=== PATIENT | female | born 1970 | race Caucasian/White ===

== ENCOUNTER 2018-07-03 16:35 | Inpatient (IN) | payer OTHER ==
[~2018-07-03] VITALS: Ht 172.7 cm; Wt 79.4 kg
[2018-07-03 16:39] VITALS: BP 148/83
[2018-07-03 17:27] LABS: ABSOLUTE NEUTROPHILS 5.1 thou/uL (1.4-8.2); EOSINOPHILS 4.1 % (0.0-3.0); HEMATOCRIT 41.7 % (37.0-47.0); HEMOGLOBIN 14.1 gm/dL (12.0-15.0); LYMPHOCYTES 29.8 % (24.0-44.0); MCH 29.4 pg (26.0-34.0); MCHC 33.9 g/dL (28.0-37.0); MCV 86.7 fL (80.0-100.0); MONOCYTES 7.7 % (1.0-8.0); PLATELET COUNT 259 thou/uL (150-400); POLYS 57.4 % (36.0-66.0); RBC 4.81 mil/uL (4.20-5.00); RDW 13.7 % (10.5-14.5); WBC 8.9 thou/uL (4.0-11.0)
[2018-07-03 17:29] LABS: URINE BILIRUBIN NEGATIVE (Negative); URINE BLOOD 3+ (Negative); URINE CLARITY CLEAR; URINE COLOR YELLOW; URINE GLUCOSE-RANDOM* NEGATIVE (Negative); URINE KETONES NEGATIVE (Negative); URINE LEUKOCYTES NEGATIVE (Negative); URINE NITRITE NEGATIVE (Negative); URINE PROTEIN (DIPSTICK) NEGATIVE (Negative); URINE SPECIFIC GRAVITY >= 1.030 (1.005-1.035); URINE UROBILINOGEN 0.2 E.U./dl (0.2-1.0)
[2018-07-03 17:42] LABS: CALCIUM 9.4 mg/dL (8.5-10.1); CREATININE 0.9 mg/dL (0.6-1.0); POTASSIUM 3.4 mmol/L (3.5-5.1)
[2018-07-03 17:43] LABS: CASTS None Seen /LPF (None Seen); CRYSTALS None Seen /LPF (None Seen); SQUAMOUS 0-3 Few /LPF (0-3)
[2018-07-03 17:44] LABS: BACTERIA 1-9 Few /HPF (None Seen); URINE RBC 0-2 Rare /HPF (0-2); URINE WBC 0-5 Rare /HPF (0-5)
[2018-07-03 17:48] LABS: ALBUMIN 4.3 g/dL (3.4-5.0); TOTAL BILIRUBIN 0.3 mg/dL (<0.1-1.0); TOTAL PROTEIN 8.2 g/dL (6.4-8.2)
[2018-07-03] MEDS ORDERED: SYMBICORT160 MCG/4. INH (18:25)
[2018-07-03] MEDS ORDERED: BENTYL 10 MG CA10 M1 PO (18:25)
[2018-07-03] MEDS ORDERED: PROTONIX40 M1 PO (18:25)
[2018-07-03] MEDS ORDERED: MIRALAX17 GM PO (18:26)
[2018-07-03 22:45] VITALS: BP 125/75
[2018-07-03 22:47] VITALS: BP 125/75
[2018-07-03 23:30] VITALS: BP 140/86
--- NOTE | 2018-07-04 03:16 | NUR ---
Pt came up to unit approx 2300. Alert and oriented x4. Admission assessment, history, and education completed. C/o abdominal pain. Prn pain meds administered. New admission orders note. No c/o nausea or vomiting. Pt calls appropriately. Will continue to monitor and assist with needs.
[2018-07-04 04:55] VITALS: BP 102/66
[2018-07-04 05:53] LABS: POTASSIUM 4.5 mmol/L (3.5-5.1)
[2018-07-04 07:37] VITALS: BP 115/81
[2018-07-04 08:01] LABS: CALCIUM 8.8 mg/dL (8.5-10.1); CREATININE 0.9 mg/dL (0.6-1.0)
--- NOTE | 2018-07-04 13:12 | NUR ---
PATIENT BACK FROM MRI OF ABDOMEN.GIVEN PRN TYLENOL FOR HEADACHE. IV ZOFRAN FOR N&V. ALSO GIVEN SPRITE.
[2018-07-04 16:14] VITALS: BP 132/77
--- NOTE | 2018-07-04 17:03 | NUR ---
ASSESSMENT-PT LIVES IN AN APT WITH HER SIGNIFICANT OTHER WHO IS A RN. 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 PT FOLLOWS WITH A DR AT THE [facility]. NO HH, NO DME. PT HAS BEEN TO PAIN CLINIC AT [facility]. NO DC NEEDS ANTICIPATED.
--- NOTE | 2018-07-04 17:21 | NUR ---
CONSULT CALLED TO DR [facility]/ ONCOLOGY [phone] [address] SER[address] ESTELLA ANDERSON IS POT PUSHER.
--- NOTE | 2018-07-04 17:24 | NUR ---
REPORT CALLED TO [facility] NURSE PATIENT IS MOVING TO ROOM 223.
--- NOTE | 2018-07-04 17:49 | NUR ---
PATIENT TAKEN VIA W/C TO [facility] ROOM 223. PT TRANSFERRED TO THIS ROOM.
[2018-07-04 18:05] VITALS: BP 136/86
--- NOTE | 2018-07-04 19:26 | NUR ---
PATIENT TRANSFERRED FROM [facility], REPORT FROM LEAH/RN. PATIENT ALERT AND ORIENTED X 4. UP AD FLORI. C/O PAIN WITH ABDOMEN, PAIN MED GIVEN PRIOR TO COMING TO THE UNIT. DR COLON CALLED DUE TO PATIENT WANTS HIM TO TELL HER ABOUT THE MRI RESULTS, HE STATED HE WILL SEE PATIENT IN AM AFTER BLOOD WORK RESULT RECEIVED. PATIENT HAS LEFT AC WITH NS AT 125CC/HR. WILL CONTINUE TO MONITOR.
--- NOTE | 2018-07-05 03:16 | NUR ---
PATIENT ALERT AND ORIENTED X4. UP ADLIB. IVF INFUSING W/O COMPLICATION. MEDICATED WITH MORPHINE X1 IV WITH GOOD RESULTS FOR PAIN. COOPERATIVE WITH CARE. AT BEDSIDE IN EARLY EVENING. PATIENT ANXIOUS TO SPEAK WITH THE DOCTOR IN THE AM RE:TEST RESULTS FROM MRI. WILL MONITOR.
--- NOTE | 2018-07-05 16:45 | NUR ---
ASSUMED PATIENT AND CARES AT 0715, PATIENT WOKE IN BED A&OX4, REPORTED PAIN 6/10 AND REQUESTED PAIN MED, LAC INTACT AND PATENT WITH NS @100ML/HR, UP AD FLORI, INDEPENDENT WITH CARES, VOICED CONCERNS ABOUT MASS FOUND ON PANCREAS, MD SET TO SPEAK TO PATIENT THIS MORNING, PERSONAL BELONGINGS AND CALL LIGHT IN REACH, WILL CONTINUE TO MONITOR
[2018-07-05 19:38] VITALS: BP 121/85
--- NOTE | 2018-07-06 04:01 | NUR ---
PATIENT ALERT AND ORIENTED X4. UP ADLIB IN ROOM. FAMILY AT BEDSIDE IN EARLY EVENING. IVF INFUSING W/O COMPLICATION. MEDICATED FOR HEADACHE WITH GOOD RESULTS. PATIENT ANXIOUS ABOUT RESULTS REGARDING MASS. SLIGHT TEMP OF 98.9 DOWN TO 98.5. RESTING QUIETLY. WILL MONITOR.
[2018-07-06 08:10] VITALS: BP 115/73
--- NOTE | 2018-07-06 16:04 | NUR ---
ASSUMED PATIENT AND CARES AT 0715, PATIENT WOKE SITTING UPRIGHT ON BED, A&OX4, STATES PAIN IS BETTER AFTER RECEIVING PRN MOPHINE PRIOR TO CHANGE OF SHIFT, PATIENT IS WORRIED AND ANXIOUS ABOUT LAB RESULTS AND FINDINGS REGARDING PANCREATIC MASS, REMAINS INDEPENDENT WITH ADLS AND TRANSFERS, PERSONAL BELONGINGS AND CALL LIGHT IN REACH, WILL CONTINUE TO MONITOR
[2018-07-06 20:50] VITALS: BP 140/82
--- NOTE | 2018-07-07 05:05 | NUR ---
PATIENT ALERT AND ORIENTED X4. LESS ANXIETY NOTED DURING THE SHIFT. STATES THAT SHE IS READY TO GO HOME. 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 POSSIBLE BIOPSY ON AN OUTPATIENT BASIS. WILL MONITOR. NO C/O N/V.
[2018-07-07] MEDS ORDERED: HYDROCODON-ACE1 EAC7 PO (08:18)
[2018-07-07 09:55] VITALS: BP 140/82
--- NOTE | 2018-07-07 10:18 | NUR ---
ASSUMED CARE AT SHIFT CHANGE. PT A/O X 4, C/O PAIN TO MID BACK WRAPPING AROUND TO ABD. PT PAIN RELIEVED WITH PRN PAIN MEDICATIONS. PT DC'D THIS MORNING WITH PLAN TO FOLLOW UP WITH DR NASCIMENTO-ONCOLOGY. RX X 1 GIVEN UPON DC AND ALL QUESTIONS ANSWERED. PT IV PREVIOUSLY DC'D. NO TELE. PT AMBUALTORY WITH STEADY GAIT. ASSISTED HOME VIA SIG OTHER.
== END 2018-07-07 10:30 | disposition home or self-care (01) | DRG 440 ==
LOC: ER 16:35 → 4E 21:30 → EROBS 21:30 → 4E 23:00 → SICU 07-04 18:43
PROVIDERS: Nurse Practitioner Family; Physician Assistant; ADMIT Hospitalist
DX: K86.9 Disease of pancreas, unspecified (principal); J44.9 Chronic obstructive pulmonary disease, unspecified; K44.9 Diaphragmatic hernia without obstruction or gangrene; K21.9 Gastro-esophageal reflux disease without esophagitis; K59.00 Constipation, unspecified; Z87.891 Personal history of nicotine dependence; Z90.49 Acquired absence of other specified parts of digestive tract
CPT/HCPCS: 10084; 15002